=== PATIENT | male | born 1965 | race Caucasian/White ===

== ENCOUNTER 2018-01-06 10:49 | Emergency (ER) | payer OTHER ==
[~2018-01-06] VITALS: Ht 175.3 cm; Wt 86.2 kg
[2018-01-06] MEDS ORDERED: DICLOFENAC SODI75 MG PO (11:36)
[2018-01-06] MEDS ORDERED: KEFLEX500 M1 PO (12:06)
[2018-01-06 12:28] VITALS: BP 147/96
== END 2018-01-06 12:29 | disposition home or self-care (01) ==
LOC: ER 10:49
DX: S01.81XA Laceration without foreign body of other part of head, initial encounter (principal); F17.210 Nicotine dependence, cigarettes, uncomplicated; Z88.5 Allergy status to narcotic agent; W25.XXXA Contact with sharp glass, initial encounter; Y93.89 Activity, other specified; Y92.89 Other specified places as the place of occurrence of the external cause; Y99.8 Other external cause status